=== PATIENT | female | born 1975 | race Caucasian/White ===

== ENCOUNTER 2018-04-24 19:09 | Emergency (ER) | payer OTHER ==
[~2018-04-24] VITALS: Ht 170.2 cm; Wt 68.0 kg
[2018-04-24 19:14] VITALS: BP_SYST 132
[2018-04-24 19:30] VITALS: BP_SYST 132
== END 2018-04-24 19:30 ==
LOC: SED 19:09
DX: Z02.89 Encounter for other administrative examinations (principal)